=== PATIENT | female | born 1985 | race Caucasian/White ===

== ENCOUNTER → 2021-05-26 16:56 | Outpatient (CLI) | payer SELFPAY ==
--- NOTE | 2021-05-26 16:59 | RAD_ITS ---
STUDY: X-RAY - RIGHT KNEE REASON FOR EXAM: Female, 36 years old. Lateral pain. TECHNIQUE: 4 view(s) of the knee. COMPARISON: None. FINDINGS: Normal visualized distal femur. Normal visualized proximal tibia and fibula. Normal proximal tibiofibular articulation. There is no acute fracture, dislocation or destructive osseous pathology. Normal medial femorotibial compartment. Normal lateral femorotibial compartment. There is mild narrowing of the lateral patellofemoral joint. The soft tissue structures are unremarkable. RAD/Knee 4 or More Views IMPRESSION: Patellofemoral degenerative change. Electronically Signed: Malik Mendoza DO at 17:59 EDT Tel [phone], Service support ,
== END ==
LOC: MTRAD 16:58
PROVIDERS: Referring Provider Physician Assistant; Visit Provider Physician Assistant
DX: M25.561 Pain in right knee (principal)
CPT/HCPCS: 73564